=== PATIENT | male | born 1965 | race African-American/Black ===

== ENCOUNTER 2019-07-16 09:39 | Emergency (ER) | payer MEDICAID ==
[~2019-07-16] VITALS: Ht 175.3 cm; Wt 90.7 kg
[2019-07-16] MEDS ORDERED: KETOROLAC 30MG/ML VIAL IM ONE (11:00)
[2019-07-16 11:11] VITALS: BP 146/93
== END 2019-07-16 11:15 | disposition home or self-care (01) ==
LOC: ER 09:39
DX: M19.011 Primary osteoarthritis, right shoulder (principal)
CPT/HCPCS: 96372; 99283; J1885